=== PATIENT | female | born 1975 | race Caucasian/White ===

== ENCOUNTER 2021-07-21 13:01 | Outpatient (CLI) | payer BC, SELFPAY ==
--- NOTE | 2021-07-21 13:14 | XR_ITS ---
WS: [id number] XR foot RT 2V [id number] REASON FOR EXAM: R FOOT PAIN FINDINGS: Joint spaces and bone structure of the right forefoot are unremarkable. Joint spaces and bony structure of the right midfoot are unremarkable. Joint spaces and bony structure of the right hindfoot are unremarkable. No soft tissue abnormality of the right foot. XR/XR foot RT 2V [id number] IMPRESSION: No significant abnormality of the right foot.
== END 2021-07-21 13:02 | disposition home or self-care (01) ==
LOC: RAD 13:06
PROVIDERS: PCP Family Medicine; Visit Provider Family Medicine
DX: M79.671 Pain in right foot (principal)
CPT/HCPCS: 73620

== ENCOUNTER 2021-07-31 08:50 | Outpatient (CLI) | payer BC, SELFPAY ==
--- NOTE | 2021-07-31 09:01 | USCV_ITS ---
France Mcguire Age: 45 Gender: F : 1975 Exam Date: 07/31/2021 09:20 Ordering Phys: Matt Anderson MD Technologist: Lorna Tucker Exam Location: [facility] [place] Indication: LEFT CALF PAIN HISTORY: Lower extremity pain. PROCEDURES: Venous duplex imaging was performed in only the left lower extremity. The following venous structures were evaluated: common femoral vein, profunda vein, proximal portion of the greater saphenous vein, superficial femoral vein, and the popliteal vein. In addition, the posterior tibial and peroneal trunk were evaluated. FINDINGS: Normal 2-D Doppler and augmentation and compressibility throughout the lower extremity venous structures. Additional imaging through the proximal calf veins also reveals no thrombus. Limited evaluation of the greater saphenous vein is patent with no thrombus.. CONCLUSIONS No evidence of left lower extremity DVT. Nagi Robledo MD (Electronically Signed) Final Date: 31 July 2021 15:49 S
== END 2021-07-31 08:51 | disposition home or self-care (01) ==
PROVIDERS: PCP Family Medicine; Visit Provider Family Medicine
DX: M79.662 Pain in left lower leg (principal)
CPT/HCPCS: 93971

== ENCOUNTER 2021-10-20 11:03 | Outpatient (CLI) | payer BC, SELFPAY ==
[2021-10-20 11:08] VITALS: BMI 31.0
[2021-10-20 11:10] VITALS: BP 141/100; PULSE 78; RESP 18; TEMP 36.8; O2SAT 98
[2021-10-20 11:57] VITALS: BP 138/96; PULSE 78; RESP 16; TEMP 36; O2SAT 96
[2021-10-20 12:57] VITALS: BP 128/94; PULSE 63; RESP 16; TEMP 36.7; O2SAT 95
--- NOTE | 2021-10-20 14:01 | PC.NURSE ---
Documention of care provided by Geoff Sommers RN and Roya Valdez LPN
--- NOTE | 2021-10-20 14:05 | PC.NURSE ---
Documented care provided only by Geoff Sommers RN and Roya Valdez LPN
== END 2021-10-20 11:04 | disposition home or self-care (01) ==
LOC: OPS 11:06
PROVIDERS: PCP Family Medicine; Visit Provider Nurse Practitioner Family
DX: U07.1 COVID-19 (principal)
CPT/HCPCS: 96365

== ENCOUNTER → 2021-11-28 13:39 | Outpatient (BNVA) | payer BC, SELFPAY | PROVIDERS: PCP Family Medicine; Referring Provider Family Medicine; Visit Provider Podiatrist Foot & Ankle Surgery | DX: M79.672 Pain in left foot (principal); M79.671 Pain in right foot | CPT/HCPCS: 73630 ==

== ENCOUNTER → 2022-08-11 17:56 | Outpatient (BNVA) | payer BC, SELFPAY | PROVIDERS: PCP Family Medicine; Visit Provider Registered Nurse Neonatal Intensive Care | DX: N39.0 Urinary tract infection, site not specified (principal) | CPT/HCPCS: 81000 ==

== ENCOUNTER 2022-10-04 10:00 | Outpatient (CLI) | payer BC, SELFPAY ==
[2022-10-04] MEDS: iohexol 350 mg/mL 500 mL Btl (per mL) IV (10:22)
[2022-10-04] MEDS: iohexol 350 mg/mL 500 mL Btl (per mL) PO (10:23)
--- NOTE | 2022-10-04 11:00 | CT_ITS ---
WS: [id number] CT CHEST AND ABDOMEN WITH CONTRAST HISTORY: dyspnea and abd pain/ after covid Please note CT chest, abdomen and pelvis was performed. The pelvis CT was not ordered but will be rep orted. No charge should be submitted for the pelvis CT. TECHNIQUE: Axial imaging is performed through the chest, abdomen and pelvis with IV and oral contrast .. Sagittal and coronal reformats. All CT scans at [facility] use at least one of these dose optimization techniques: automated exposure control; mA and/or kV adjustment per patient size (includ es targeted exams where dose is matched to clinical indication); or iterative reconstruction. CONTRAST: Omnipaque 350; 95 mL IV. DLP: 1777.28 mGy.cm COMPARISON: None available. Chest CT: Lungs are clear and well aerated. No pneumonia. Normal thoracic aorta and pulmonary artery. No medias tinal or hilar adenopathy. Heart is normal size. No pericardial or pleural effusions. Very small hiatal hernia. Subcentimeter LEFT thyroid nodule. No destructive bone lesions. Abdomen CT: Liver: Normal size liver with moderate diffuse hepatic steatosis. No mass. No bile duct dilatation. Gallbladder: Normal. Pancreas: Normal. Spleen: Normal. Normal adrenal glands. Right kidney: No obstruction or mass. Left kidney: No obstruction or mass. Abdominal aorta: Normal. Gastrointestinal tract: Normal appearance of the stomach and small bowel. There is no obstruction. Th e appendix is not identified. No history of prior appendectomy. Prior hysterectomy. Ovaries are identified and normal. No free fluid in the pelvis or adenopathy. Osseous structures: No destructive bone lesions. CT/CT chest abdomen w con* IMPRESSION: 1. No pulmonary mass or nodule. 2. Very small hiatal hernia. 3. Normal size liver with moderate hepatic steatosis. 4. Gallbladder is negative. 5. Prior hysterectomy.
== END 2022-10-04 10:01 | disposition home or self-care (01) ==
PROVIDERS: PCP Family Medicine; Visit Provider Family Medicine
DX: R06.00 Dyspnea, unspecified (principal); R10.9 Unspecified abdominal pain
CPT/HCPCS: 71260; 74160; Q9967

== ENCOUNTER 2023-09-24 12:21 | Outpatient (CLI) | payer BC, SELFPAY ==
--- NOTE | 2023-09-24 12:25 | XR_ITS ---
WS: [email or web address] Exam: XR coccyx 2V [id number] Date/Time of Exam: 09/24/2023 12:38 PM Reason For Exam: coccyx pain The visualized sacrum and coccyx shows no evidence of fracture or dislocation. No sign of bone destru ction. IMPRESSION: 1. No fracture or other significant finding.
== END 2023-09-24 12:22 | disposition home or self-care (01) ==
PROVIDERS: PCP Family Medicine; Visit Provider Family Medicine
DX: M53.3 Sacrococcygeal disorders, not elsewhere classified (principal)
CPT/HCPCS: 72220

== ENCOUNTER → 2023-10-14 10:38 | Outpatient (BNVA) | payer BC, SELFPAY | PROVIDERS: PCP Family Medicine; Visit Provider Nurse Practitioner | DX: R39.9 Unspecified symptoms and signs involving the genitourinary system (principal) | CPT/HCPCS: 81000 ==

== ENCOUNTER → 2023-10-28 14:45 | Outpatient (BNVA) | payer BC, SELFPAY | PROVIDERS: PCP Family Medicine; Visit Provider Family Medicine | DX: R30.0 Dysuria (principal) | CPT/HCPCS: 81000; 87086 ==

== ENCOUNTER → 2024-02-26 15:08 | Outpatient (BNVA) | payer BC, SELFPAY | PROVIDERS: PCP Family Medicine; Visit Provider Podiatrist Foot & Ankle Surgery | DX: M76.72 Peroneal tendinitis, left leg; M76.62 Achilles tendinitis, left leg; M79.671 Pain in right foot | CPT/HCPCS: 73630 ==

== ENCOUNTER → 2024-04-15 08:38 | Outpatient (BNVA) | payer BC, SELFPAY | PROVIDERS: PCP Family Medicine; Visit Provider Family Medicine | DX: I10 Essential (primary) hypertension (principal); R21 Rash and other nonspecific skin eruption; E11.9 Type 2 diabetes mellitus without complications | CPT/HCPCS: 80053; 80061; 84443; 85025; 86160; 86162; 86235; 86255; 86376 ==

== ENCOUNTER 2024-06-25 14:17 | Outpatient (CLI) | payer BC, SELFPAY ==
--- NOTE | 2024-06-25 14:25 | XR_ITS ---
WS: [email or web address] XR hand LT 2V [id number] REASON FOR EXAM: MULTIPLE JOINT PAIN FINDINGS: No fracture or focal bone lesion. No periarticular bone erosions and no periostitis. No periosteal reaction. The joint spaces in the left hand are intact and relatively well preserved. XR/XR hand LT 2V [id number] IMPRESSION: No significant abnormality.
--- NOTE | 2024-06-25 14:25 | XR_ITS ---
WS: [email or web address] XR wrist RT 2V [id number] REASON FOR EXAM: MULTIPLE JOINT PAIN FINDINGS: No fracture or focal bone lesion. No periarticular erosions. No periostitis. No periosteal reaction. Joint spaces of the wrist are intact and relatively well preserved. XR/XR wrist RT 2V [id number] IMPRESSION: No significant abnormality.
--- NOTE | 2024-06-25 14:25 | XR_ITS ---
WS: [email or web address] XR wrist LT 2V [id number] REASON FOR EXAM: MULTIPLE JOINT PAIN FINDINGS: No fracture or focal bone lesion. No periarticular erosions or periostitis. No periosteal reaction. Joint spaces of the left wrist are intact and relatively well preserved. XR/XR wrist LT 2V [id number] IMPRESSION: No significant abnormality.
--- NOTE | 2024-06-25 14:25 | XR_ITS ---
WS: [email or web address] XR hip BI 3-4V wo/w pel [id number] REASON FOR EXAM: MULTIPLE JOINT PAIN FINDINGS: The hips are symmetric in their appearance. No fracture or focal bone lesion. Mild to moderate asymmetric narrowing of the joint space with moderate subchondral sclerosis and mild osteophytosis of the acetabuli. Minimal osteophytosis of the femoral heads. XR/XR hip BI 3-4V wo/w pel [id number] IMPRESSION: Mild to moderate osteoarthritis of the hips. Sacroiliac joints on the AP view of the pelvis are unremarkable.
--- NOTE | 2024-06-25 14:25 | XR_ITS ---
WS: [email or web address] XR hand RT 2V [id number] REASON FOR EXAM: MULTIPLE JOINT PAIN FINDINGS: No fracture or focal bone lesion. No periarticular bone erosion or periostitis. No periosteal reaction. The joint spaces of the hand are intact and relatively well preserved. XR/XR hand RT 2V [id number] IMPRESSION: No significant abnormality.
== END 2024-06-25 14:18 | disposition home or self-care (01) ==
PROVIDERS: PCP Family Medicine
DX: M25.50 Pain in unspecified joint (principal); R53.81 Other malaise; M79.10 Myalgia, unspecified site; M16.0 Bilateral primary osteoarthritis of hip
CPT/HCPCS: 73100; 73120; 73522

== ENCOUNTER 2024-07-15 09:23 | Outpatient (CLI) | payer BC, SELFPAY | END 2024-07-15 09:24 | disposition home or self-care (01) | PROVIDERS: PCP Family Medicine; Visit Provider Family Medicine | DX: R06.00 Dyspnea, unspecified (principal) | CPT/HCPCS: 94010; 94726; 94729 ==

== ENCOUNTER → 2024-09-01 12:25 | Outpatient (BNVA) | payer BC, SELFPAY | PROVIDERS: PCP Family Medicine; Visit Provider Internal Medicine Cardiovascular Disease | DX: R07.9 Chest pain, unspecified (principal) | CPT/HCPCS: 93005 ==

== ENCOUNTER 2024-10-09 12:40 | Outpatient (CLI) | payer BC, SELFPAY ==
--- NOTE | 2024-10-09 12:49 | XRR_ITS ---
PROCEDURE INFORMATION: Exam: XR Lumbosacral Spine Exam date and time: 10/09/2024 12:58 PM Age: 49 years old Clinical indication: Pain; Lumbago with sciatica; Right; Additional info: Lower back pain with RT sciatica x 2 years; Worse x 1 week; Previous hyperextension injury x 2 years ago TECHNIQUE: Imaging protocol: Radiologic exam of the lumbosacral spine. Views: 6 or more views. Including flexion and extension views. COMPARISON: CR XR hip BI 3-4V wo/w pel [id number] 06/25/2024 2:43 PM FINDINGS: Bones/joints: Normal. No acute fracture. Normal alignment. Soft tissues: Unremarkable. XR/XR lumbar spine 6V w f/e [id number] IMPRESSION: No acute findings.
== END 2024-10-09 12:41 | disposition home or self-care (01) ==
PROVIDERS: PCP Family Medicine; Visit Provider Family Medicine
DX: M54.50 Low back pain, unspecified (principal)
CPT/HCPCS: 72114

== ENCOUNTER 2024-11-09 07:23 | Emergency (ER) | payer BC, SELFPAY ==
[2024-11-09] VITALS (8 sets, daily range): BP systolic 122–163; BP diastolic 79–105; PULSE 62–76; RESP 18; TEMP 36.7; O2SAT 93–98; BMI 34.0
--- NOTE | 2024-11-09 07:35 | ED_ITS ---
HPI - Abdominal Pain 2 General: Chief Complaint: Abdominal Pain Stated Complaint: abd pain Time Seen by Provider: 11/09/24 07:32 History of Present Illness: 49-year-old female presents to the emerg ency room complaints the emergency room with complaint of abdominal pain mostly epigastric. She has not any hematemesis coffee-ground emesis. No fever sweats or chills. She has been very nauseated but no hematemesis. Associated Symptoms: Denies chills, dysuria and fever(s) Related Data Home Medications Medication Instructions Recorded Confirmed biotin 10,000 mcg capsule 10,000 mcg PO .1 day 01/08/23 11/09/24 valsartan 40 mg tablet 40 mg PO QAM 09/01/24 11/09/24 escitalopram oxalate 20 mg tablet 20 mg PO DAILY 11/09/24 11/09/24 hydralazine 10 mg tablet 10 mg PO BID 11/09/24 11/09/24 hydralazine 25 mg tablet 25 mg PO BID 11/09/24 11/09/24 hydrochlorothiazide 25 mg tablet 25 mg PO DAILY PRN hypertension 11/09/24 11/09/24 Previous Rx's Medication Instructions Recorded spironolactone 100 mg tablet 100 mg PO DAILY #30 tabs 02/13/24 metoprolol succinate 25 mg 25 mg PO DAILY #90 tabs 09/01/24 tablet,extended release 24 hr alprazolam 0.25 mg tablet 0.25 mg PO BID PRN anxiety #60 tabs 09/07/24 cyclobenzaprine 10 mg tablet 10 mg PO TID PRN muscle spasm #30 10/09/24 tabs ondansetron 4 mg disintegrating 4 mg PO Q6H PRN nausea and 11/09/24 tablet vomiting #20 tabs sucralfate 1 gram tablet (Carafate) 1 g PO Q6H 8 weeks #30 tabs 11/09/24 Allergies Allergy/AdvReac Type Severity Reaction Status Date / Time venlafaxine [From Effexor] Allergy ADR-Dizzine Verified 09/01/24 12:37 ss amlodipine AdvReac edema Verified 09/01/24 12:37 Review of Systems 2 Const: Denies: fever(s) or chills Card: Denies: chest pain Resp: Denies: dyspnea GI: Reports: abdominal pain : Denies: dysuria, urinary frequency or urinary urgency Musc: Denies: neck pain or back pain Skin/Breast: Denies: rash PFSH ED 2 PFSH: Medical History Anxiety Hypertension GERD (gastroesophageal reflux disease) Surgical History Hx of hysterectomy Hx of tonsillectomy Hx of knee surgery x3 Hx of colonoscopy Dr. Orosco Social History Smoking and tobacco/nicotine status: never used tobacco/nicotine Physical Exam 2 Const: COMMON NORMALS: no acute distress GENERAL APPEARANCE: cooperative and comfortable ORIENTATION/CONSCIOUSNESS: Yes awake, Yes oriented to person, Yes oriented to place and Yes oriented to time HENMT: COMMON NORMALS: normocephalic, atraumatic and hearing grossly normal bilaterally HEAD & SCALP: normocephalic and atraumatic Resp: COMMON NORMALS: normal respiratory effort, No retractions, No use of accessory muscles and clear to auscultation bilaterally AUSCULTATION: clear to auscultation bilaterally Cardio: COMMON NORMALS: regular rate, regular rhythm and No murmurs present (Cardio) RATE: regular rate RHYTHM: regular rhythm GI: COMMON NORMALS: No hepatosplenomegaly present AUSCULTATION: Yes normoactive bowel sounds PALPATION: Yes Tenderness to palpation present (GI) (Epigastric), No Guarding due to palpation present (GI) and Yes No hepatosplenomegaly present Extremity: COMMON NORMALS: normal to inspection, capillary refill normal, no clubbing, cyanosis or edema, no calf tenderness and no pedal edema Neuro: SENSORIUM/ORIENTATION: Yes oriented to person, Yes oriented to place and Yes oriented to time Skin: COMMON NORMALS: no rashes or lesions noted GENERAL SKIN EXAM: no rashes or lesions noted Course 2 Vital Signs: Vital signs: Vital Signs Temperature 98.1 F 11/09/24 07:37 Pulse Rate 67 11/09/24 11:42 Respiratory Rate 18 11/09/24 07:37 Blood Pressure 131/81 11/09/24 11:42 Pulse Oximetry 93 11/09/24 11:42 MDM - Abdominal Pain Medical Decision Making CT shows evidence of gastroenteritis. Patient has not had any hematemesis while here we will discharge patient home clear liquid diet advance as tolerated. Use promethazine as needed. Medical Records I reviewed the patient's medical records. Lab Data I reviewed the patient's lab results. 11/09/24 07:57 11/09/24 07:57 Labs/Radiology: Radiology Impressions Abdomen/Pelvis CT 11/09/24 08:31 IMPRESSION: 1. Mild hepatomegaly with diffuse fatty infiltration of the liver. 2. Slightly hydropic gallbladder. No gallbladder wall thickening or pericholecystic fluid. 3. Mild gastritis and duodenitis. 4. Mild cecal constipation. 5. Normal sigmoid colon. 6. RIGHT ovarian cyst measuring 2.9 x 2.9 cm. No free fluid. 7. Small fat-containing umbilical hernia. Fat-containing LEFT inguinal hernia. 8. Small esophageal hiatal hernia. Laboratory Results WBC 16.58 10^3/uL (3.29-11.43) H 11/09/24 07:57 RBC 4.92 10^6/uL (3.85-5.65) 11/09/24 07:57 Hgb 15.90 g/dL (11.27-16.99) 11/09/24 07:57 Hct 43.8 % (36-47) 11/09/24 07:57 MCV 89.0 fl (85-98) 11/09/24 07:57 MCH 32.3 pg (27-33) 11/09/24 07:57 MCHC 36.3 g/dL (30-55) 11/09/24 07:57 RDW 11.9 % (12.1-15.1) L 11/09/24 07:57 Plt Count 261 10^3/cmm (157-399) 11/09/24 07:57 MPV 10.4 fL (7.4-10.4) 11/09/24 07:57 Neut % (Auto) 80.6 % 11/09/24 07:57 Lymph % (Auto) 14.2 % 11/09/24 07:57 [place] % (Auto) 4.2 % 11/09/24 07:57 Eos % (Auto) 0.2 % 11/09/24 07:57 Baso % (Auto) 0.4 % 11/09/24 07:57 Neut # (Auto) 13.38 10^3/uL (1.8-7.7) H 11/09/24 07:57 Lymph # (Auto) 2.4 10^3/uL (0.8-4.8) 11/09/24 07:57 [place] # (Auto) 0.7 10^3/uL (0.2-0.9) 11/09/24 07:57 Eos # (Auto) 0.0 10^3/uL (0.0-0.8) 11/09/24 07:57 Baso # (Auto) 0.1 10^3/uL (0.0-0.1) 11/09/24 07:57 Nucleated RBC % (auto) 0 % 11/09/24 07:57 Nucleated RBCs # 0.0 /100WBC 11/09/24 07:57 Sodium 135 mmol/L (136-145) L 11/09/24 07:57 Potassium 3.3 mmol/L (3.5-5.1) L 11/09/24 07:57 Chloride 98 mmol/L (98-107) 11/09/24 07:57 Carbon Dioxide 23 mmol/L (22-29) 11/09/24 07:57 Anion Gap 17.3 (5-19) 11/09/24 07:57 BUN 15 mg/dL (6-20) 11/09/24 07:57 Creatinine 0.5 mg/dL (0.5-0.9) 11/09/24 07:57 GFR Calculation 130.6 mL/min (90-130) H 11/09/24 07:57 Glucose 113 mg/dL (65-115) 11/09/24 07:57 Calculated Osmolality 282 mOsm/kg (285-295) L 11/09/24 07:57 Calcium 9.3 mg/dL (8.5-10.5) 11/09/24 07:57 Total Bilirubin 0.4 mg/dL (0.15-1.2) 11/09/24 07:57 AST 23 U/L (0-32) 11/09/24 07:57 ALT 44 U/L (0-33) H 11/09/24 07:57 Alkaline Phosphatase 75 U/L (35-105) 11/09/24 07:57 Total Protein 7.2 g/dL (6.6-8.7) 11/09/24 07:57 Albumin 4.2 g/dL (3.5-5.2) 11/09/24 07:57 Globulin 3.0 g/dL (1.3-4.6) 11/09/24 07:57 Lipase 27 U/L (13-60) 11/09/24 07:57 Urine Color Yellow (Yellow) 11/09/24 08:40 Urine Appearance Clear (CLEAR) 11/09/24 08:40 Urine pH 8.0 (5-7) A 11/09/24 08:40 Ur Specific [place] 1.028 (1.005-1.030) 11/09/24 08:40 Urine Protein Trace (Negative) A 11/09/24 08:40 Urine Glucose (UA) Negative (Normal) 11/09/24 08:40 Urine Ketones Trace (Negative) 11/09/24 08:40 Urine Blood Negative (Negative) 11/09/24 08:40 Urine Nitrate Negative (Negative) 11/09/24 08:40 Urine Bilirubin Negative (Negative) 11/09/24 08:40 Urine Urobilinogen 0.2 mg/dL (Negative) 11/09/24 08:40 Ur Leukocyte Esterase 1+ (Negative) A 11/09/24 08:40 Urine RBC 0-2 /hpf (0-2) 11/09/24 08:40 Urine WBC 6-10 /hpf (0-5) 11/09/24 08:40 Ur Squamous Epith Cells 6-10 /hpf (0-5) 11/09/24 08:40 Amorphous Sediment Not Reportable 11/09/24 08:40 Urine Bacteria 1+ /hpf (NONE) H 11/09/24 08:40 Hyaline Casts 0.40 /lpf 11/09/24 08:40 All radiology interpretation(s) finalized by discharge Discharge Plan Discharge Patient Disposition: Home Clinical Impression: Gastroenteritis Condition: Stable Prescriptions: New ondansetron 4 mg tablet,disintegrating 4 mg PO Q6H PRN (Reason: nausea and vomiting) Qty: 20 0RF sucralfate [Carafate] 1 gram tablet 1 g PO Q6H 56 Days Qty: 30 0RF No Action valsartan 40 mg tablet 40 mg PO QAM metoprolol succinate 25 mg tablet extended release 24 hr 25 mg PO DAILY Qty: 90 3RF cyclobenzaprine 10 mg tablet 10 mg PO TID PRN (Reason: muscle spasm) Qty: 30 0RF biotin 10,000 mcg capsule 10,000 mcg PO .1 day spironolactone 100 mg tablet 100 mg PO DAILY Qty: 30 11RF alprazolam 0.25 mg tablet 0.25 mg PO BID PRN (Reason: anxiety) Qty: 60 5RF hydralazine 10 mg tablet 10 mg PO BID hydralazine 25 mg tablet 25 mg PO BID hydrochlorothiazide 25 mg tablet 25 mg PO DAILY PRN (Reason: hypertension) Rx Instructions: TAKE ONE TABLET BY MOUTH EVERY DAY FOR HYPERTENSION PRN; escitalopram oxalate 20 mg tablet 20 mg PO DAILY Rx Instructions: TAKE 1 TABLET BY MOUTH EVERY DAY Discharge Orders: Discharge ED (Routine); Ordered 11/09/24 Ordered By: Jong Reyes Referrals: Matt Anderson MD [Primary Care Provider] - Discharge Diet: Clear Liquid Discharge Activity: Resume usual activity Patient Instructions: Gastroenteritis (ED), Opioid Safety, Pain Management Activity Restrictions/Additional Instructions: Thank you for choosing [facility] for your healthcare needs today. It is very important that you follow up as instructed or that you return to the Emergency Department should you have concerns or if your condition changes or worsens in any way. You are seen emergency room with abdominal pain. Your white count was mildly elevated CT did not show any signs of acute intra-abdominal pathology. Recommend clear liquid diet for 24 to 48 hours and advance as tolerated. You can use the Carafate and ondansetron as needed. Coding Level of Care Code ED Marketing Information Manager for Misty Rowe
[2024-11-09] MEDS: ondansetron 2 mg/ML SDV 2 mL 4 MG IVP (08:03)
[2024-11-09] MEDS: pantoprazole 40 mg SDV 80 MG IVP (08:03)
[2024-11-09 08:10] LABS: Basophils # 0.1 10^3/uL (0.0-0.1); Basophils % 0.4 %; Eosinophils % 0.2 %; Hematocrit 43.8 % (36-47); Lymphocytes # 2.4 10^3/uL (0.8-4.8); Lymphocytes % 14.2 %; Mean Corpuscular HGB Conc 36.3 g/dL (30-55); Mean Corpuscular Hemoglobin 32.3 pg (27-33); Mean Platelet Volume 10.4 fL (7.4-10.4); Monocytes # 0.7 10^3/uL (0.2-0.9); Monocytes % 4.2 %; Neutrophils # 13.38 10^3/uL (1.8-7.7); Neutrophils % 80.6 %; Nucleated Red Blood Cells % 0 %; Platelet Count 261 10^3/cmm (157-399); Red Blood Count 4.92 10^6/uL (3.85-5.65); Red Cell Distribution Width 11.9 % (12.1-15.1); White Blood Count 16.58 10^3/uL (3.29-11.43)
[2024-11-09 08:19] LABS: Alanine Aminotransferase 44 U/L (0-33); Albumin Level 4.2 g/dL (3.5-5.2); Alkaline Phosphatase 75 U/L (35-105); Anion Gap 17.3 (5-19); Aspartate Amino Transferase 23 U/L (0-32); Blood Urea Nitrogen 15 mg/dL (6-20); Calcium 9.3 mg/dL (8.5-10.5); Carbon Dioxide 23 mmol/L (22-29); Chloride 98 mmol/L (98-107); Creatinine Clr Calc Pharmacy 173.0821; Glomerular Filtration Rate 130.6 mL/min (90-130); Glucose 113 mg/dL (65-115); Lipase 27 U/L (13-60); Osmolality Calculated 282 mOsm/kg (285-295); Potassium 3.3 mmol/L (3.5-5.1); Sodium 135 mmol/L (136-145); Total Bilirubin 0.4 mg/dL (0.15-1.2); Total Protein 7.2 g/dL (6.6-8.7)
--- NOTE | 2024-11-09 08:31 | CT_ITS ---
WS: [email or web address] CT ABDOMEN PELVIS TECHNIQUE: Contrast-enhanced CT of the abdomen and pelvis with coronal and sagittal reformatted image s. CLINICAL INFORMATION: abd pain COMPARISON: 2021 DLP: 1048.[address] scans at [facility] use at least one of these dose optimization techniques: automated e xposure control; mA and/or kV adjustment per patient size (includes targeted exams where dose is matc hed to clinical indication); or iterative reconstruction. FINDINGS: Mild hepatomegaly. Diffuse fatty infiltration of the liver. Normal spleen. Small esophageal hiatal he rnia. Lung bases are well aerated. Adrenal glands are normal. Normal renal parenchymal enhancement. N o hydronephrosis. Slightly hydropic gallbladder. Normal pancreatic parenchymal enhancement. Celiac an d SMA are patent. Incidental pelvic phleboliths. Small fat-containing umbilical hernia. Fat-containin g LEFT inguinal hernia. Normal sigmoid colon. A few diverticuli. No evidence of acute diverticulitis. Colon is decompressed. Mild cecal constipation. Normal appendix. Mild gastritis and duodenitis. RIGHT ovarian cyst measuring 2.9 x 2.9 cm. Smaller LEFT ovarian cyst. No free fluid. CT/CT abdomen pelvis w con* [id number] IMPRESSION: 1. Mild hepatomegaly with diffuse fatty infiltration of the liver. 2. Slightly hydropic gallbladder. No gallbladder wall thickening or pericholec ystic fluid. 3. Mild gastritis and duodenitis. 4. Mild cecal constipation. 5. Normal sigmoid colon. 6. RIGHT ovarian cyst measuring 2.9 x 2.9 cm. No free fluid. 7. Small fat-containing umbilical hernia. Fat-containing LEFT inguinal hernia. 8. Small esophageal hiatal hernia.
[2024-11-09 08:56] LABS: Bilirubin Urine Negative (Negative); Blood Urine Negative (Negative); Glucose Urine UA Negative (Normal); Ketones Urine Trace (Negative); Leukocyte Esterase Urine 1+ (Negative); Nitrate Urine Negative (Negative); Protein Urine Trace (Negative); Specific Gravity, Urine 1.028 (1.005-1.030); Urine Appearance Clear (CLEAR); Urine Color Yellow (Yellow); Urobilinogen Urine 0.2 mg/dL (Negative)
[2024-11-09 08:58] LABS: Add Urine Microscopic? YES; Bacteria Urine 1+ /hpf; RBC Urine 0-2 /hpf (0-2)
[2024-11-09 09:04] LABS: Add Urine Culture? No
[2024-11-09] MEDS: iohexol 350 mg/mL 500 mL Btl (per mL) IV (09:04)
== END 2024-11-09 11:44 | disposition home or self-care (01) ==
PROVIDERS: Emergency Provider Family Medicine; PCP Family Medicine
DX: K52.9 Noninfective gastroenteritis and colitis, unspecified (principal); I10 Essential (primary) hypertension
CPT/HCPCS: 36415; 74177; 80053; 81001; 83690; 85025; 96374; 96375; 99285; J2405; J2470

== ENCOUNTER → 2024-11-16 14:40 | Outpatient (BNVA) | payer BC, SELFPAY | PROVIDERS: PCP Family Medicine; Visit Provider Family Medicine | DX: R06.02 Shortness of breath (principal); R06.00 Dyspnea, unspecified | CPT/HCPCS: 87400; 87426 ==

== ENCOUNTER 2024-11-27 11:32 | Outpatient (CLI) | payer BC, SELFPAY ==
--- NOTE | 2024-11-27 11:30 | US_ITS ---
WS: [email or web address] US pelvic limited [id number] HISTORY: right ovarian cyst on CT COMPARISON: CT 11/09/2024 Prior hysterectomy. No midline mass. Neither ovary is identified. There is no free fluid in the pelvis. Transvaginal imaging is limited as the urinary bladder was not emptied. No ovarian cyst is identified. Bilateral ovarian cysts were noted on the prior CT but neither of these are identified. US/US pelvic limited [id number] IMPRESSION: 1. Previously described RIGHT ovarian cyst is not identified by ultrasound. Cy st may be too high within the pelvis to be visualized by ultrasound. 2. Status post hysterectomy.
== END 2024-11-27 11:33 | disposition home or self-care (01) ==
LOC: RAD 11:34
PROVIDERS: PCP Family Medicine; Visit Provider Family Medicine
DX: N83.201 Unspecified ovarian cyst, right side (principal); Z90.710 Acquired absence of both cervix and uterus
CPT/HCPCS: 76857

== ENCOUNTER 2025-08-13 08:27 | Outpatient (CLI) | payer BC, SELFPAY ==
[2025-08-13 09:26] LABS: Hematocrit 43.7 % (36-47); Hemoglobin 15.40 g/dL (11.27-16.99); Mean Corpuscular HGB Conc 35.2 g/dL (30-55); Mean Corpuscular Hemoglobin 31.6 pg (27-33); Mean Corpuscular Volume 89.5 fl (85-98); Nucleated Red Blood Cells % 0 %; Platelet Count 250 10^3/cmm (157-399); Red Blood Count 4.88 10^6/uL (3.85-5.65); White Blood Count 6.68 10^3/uL (3.29-11.43)
[2025-08-13 10:00] LABS: Alanine Aminotransferase 55 U/L (0-33); Albumin Level 4.4 g/dL (3.5-5.2); Alkaline Phosphatase 68 U/L (35-105); Anion Gap 18.0 (5-19); Aspartate Amino Transferase 28 U/L (0-32); Blood Urea Nitrogen 14 mg/dL (6-20); Calcium 9.2 mg/dL (8.5-10.5); Carbon Dioxide 25 mmol/L (22-29); Chloride 101 mmol/L (98-107); Cholesterol 199 mg/dL (0-200); Globulin 3.1 g/dL (1.3-4.6); Glucose 95 mg/dL (65-115); HDL Cholesterol 64 mg/dL (60-100); Osmolality Calculated 290 mOsm/kg (285-295); Potassium 4.0 mmol/L (3.5-5.1); Sodium 140 mmol/L (136-145); Total Protein 7.5 g/dL (6.6-8.7); Triglycerides 84 mg/dL (0-150)
[2025-08-13 10:16] LABS: Vitamin B12 875 pg/mL (232-1245)
== END 2025-08-13 08:28 | disposition home or self-care (01) ==
PROVIDERS: PCP Family Medicine; Visit Provider Family Medicine
DX: R04.0 Epistaxis (principal); R53.83 Other fatigue
CPT/HCPCS: 36415; 80053; 80061; 82306; 82607; 85025